=== PATIENT | male | born 1980 | race Two or more races ===

== ENCOUNTER 2017-02-09 20:16 | Emergency (ER) | payer SELFPAY ==
[~2017-02-09] VITALS: Ht 165.1 cm; Wt 108.9 kg
[2017-02-09 20:57] LABS: Basophils # (auto) 0 uL; Basophils % (auto) 0.5 % (0.0-2.0); Eosinophils # (auto) 0.3 uL; Eosinophils % (auto) 3.9 % (0.0-7.0); Hematocrit 45.5 % (41.0-53.0); Hemoglobin 15.7 g/dL (13.5-17.5); Lymphocytes # (auto) 3.2 uL; Lymphocytes % (auto) 40.3 % (10.0-50.0); Mean Corpuscular Hemoglobin 33.3 pg (28.0-32.0); Mean Corpuscular Hgb Conc. 34.6 g/dL (32.0-36.0); Mean Corpuscular Volume 96.3 fL (80.0-100.0); Mean Platelet Volume 8.7 fL (7.4-10.4); Monocytes # (auto) 0.5 uL; Monocytes % (auto) 6.6 % (0.0-12.0); Neutrophils # (auto) 3.9 uL; Neutrophils % (auto) 48.7 % (37.0-80.0); Nucleated Red Blood Cells % 0.1 %; Platelet Count (auto) 251 10^3/uL (140-450)
[2017-02-09 21:04] LABS: Urine Bilirubin Negative (Negative); Urine Blood Negative /uL (Negative); Urine Color Yellow (Yellow); Urine Glucose Normal (Normal); Urine Ketone Negative (Negative); Urine Nitrite Negative (Negative); Urine RBC <1 /hpf (0 - 3); Urine Squamous Epithelial Cell FEW /hpf (<5); Urine Urobilinogen Normal (Negative); Urine pH 5.5 (5.0-8.0)
[2017-02-09 21:12] LABS: INR 0.95 (0.9-1.15); Partial Thromboplastin Time 25.9 sec (22.64-33.71); Prothrombin Time 10.3 sec (9.37-12.3)
[2017-02-09 21:15] LABS: BUN/Creatinine Ratio 12.4; Bilirubin, Total 0.2 mg/dL (0.2-1.0); Calcium 8.9 mg/dL (8.5-10.1); Total Protein 8.4 g/dL (6.4-8.2)
[2017-02-10 02:12] VITALS: BP 119/76
[2017-02-10] MEDS ORDERED: PANTOPRAZOLE 40 MG TAB PO ONE (02:45)
== END 2017-02-10 03:24 | disposition home or self-care (01) ==
LOC: ER 20:16
DX: K29.70 Gastritis, unspecified, without bleeding (principal)
CPT/HCPCS: 36415; 74176; 80053; 81001; 82150; 83690; 85025; 85610; 85730

== ENCOUNTER → 2019-10-18 | Emergency (ER) | payer SELFPAY ==
[~2019-10-18] VITALS: Ht 167.6 cm; Wt 114.3 kg
[~2019-10-18] MED LIST: PENICILLIN G PROC & BENZAT 1200000 UNITS/2 ML SYRG IM ONE
[2019-10-19 01:15] LABS: Basophils # (auto) 0 10 ^3/uL (0-0.2); Basophils % (auto) 0.3 % (0.0-2.0); Eosinophils # (auto) 0.2 10 ^3/uL (0-0.8); Eosinophils % (auto) 3.3 % (0.0-7.0); Hematocrit 43.4 % (41.0-53.0); Hemoglobin 14.9 g/dL (13.5-17.5); Lymphocytes # (auto) 1.8 10 ^3/uL (0.4-5.4); Lymphocytes % (auto) 29.6 % (10.0-50.0); Mean Corpuscular Hgb Conc. 34.4 g/dL (32.0-36.0); Monocytes # (auto) 0.3 10 ^3/uL (0-1.3); Monocytes % (auto) 5.7 % (0.0-12.0); Neutrophils # (auto) 3.7 10 ^3/uL (1.6-8.6); Neutrophils % (auto) 61.1 % (37.0-80.0); Nucleated Red Blood Cells % 0.2 %; Platelet Count (auto) 223 10^3/uL (140-450); Red Blood Cells 4.53 10^6/uL (4.5-5.90); Red Cell Distribution Width 12.8 % (11.8-14.3); White Blood Cell 6.1 10^3/uL (4.4-10.8)
[2019-10-19 01:29] LABS: INR 0.96 (0.9-1.15); Partial Thromboplastin Time 26.4 sec (23.64-32.05)
[2019-10-19 01:32] LABS: Alanine Aminotransferase 74 U/L (16-61); Albumin 3.6 g/dL (3.4-5.0); Anion Gap 5 (5-15); Aspartate Aminotransferase 44 U/L (15-37); Blood Urea Nitrogen 11 mg/dL (7-18); Calcium 7.8 mg/dL (8.5-10.1); Carbon Dioxide 26 mmol/L (21-32); Chloride 109 mmol/L (98-107); GFR African American 109 mL/min; GFR Non-African American 90 mL/min; Glucose 109 mg/dL (74-106); Potassium 3.9 mmol/L (3.5-5.1); Sodium 140 mmol/L (136-145)
[2019-10-19 01:37] LABS: Alkaline Phosphatase 104 U/L (45-117); Bilirubin, Total 0.3 mg/dL (0.2-1.0); Total Protein 7.8 g/dL (6.4-8.2)
[2019-10-19 05:00] VITALS: BP 116/78
== END | disposition home or self-care (01) ==
LOC: ER 23:38
DX: R06.02 Shortness of breath (principal); R05 Cough; Z20.828 Contact with and (suspected) exposure to other viral communicable diseases
CPT/HCPCS: 36415; 80053; 82728; 83605; 83880; 84484; 85025; 85610; 85730; 87040; 87804; 87880; 96372; 99285; U0003

== ENCOUNTER 2019-10-23 21:30 | Inpatient (IN) | payer SELFPAY ==
[~2019-10-23] VITALS: Ht 167.6 cm; Wt 116.0 kg
[2019-10-23] MEDS ORDERED: methylPREDNISolone SOD SUCC 125 MG/2 ML VL IV ONE (22:00)
[2019-10-23 22:18] LABS: Basophils # (auto) 0 10 ^3/uL (0-0.2); Basophils % (auto) 0.4 % (0.0-2.0); Eosinophils # (auto) 0.2 10 ^3/uL (0-0.8); Eosinophils % (auto) 2.7 % (0.0-7.0); Hematocrit 44.6 % (41.0-53.0); Hemoglobin 15.4 g/dL (13.5-17.5); Lymphocytes # (auto) 3.1 10 ^3/uL (0.4-5.4); Lymphocytes % (auto) 35.1 % (10.0-50.0); Mean Corpuscular Hgb Conc. 34.5 g/dL (32.0-36.0); Mean Corpuscular Volume 95.6 fL (80.0-100.0); Monocytes # (auto) 0.5 10 ^3/uL (0-1.3); Monocytes % (auto) 5.7 % (0.0-12.0); Neutrophils % (auto) 56.1 % (37.0-80.0); Nucleated Red Blood Cells % 0.1 %; Platelet Count (auto) 244 10^3/uL (140-450); Red Blood Cells 4.66 10^6/uL (4.5-5.90); Red Cell Distribution Width 12.8 % (11.8-14.3); White Blood Cell 8.9 10^3/uL (4.4-10.8)
[2019-10-23 22:40] LABS: Albumin 4.2 g/dL (3.4-5.0); Potassium 3.6 mmol/L (3.5-5.1)
[2019-10-23 22:44] LABS: BUN/Creatinine Ratio 13.9; Bilirubin, Total 0.5 mg/dL (0.2-1.0); Total Protein 8.4 g/dL (6.4-8.2)
[2019-10-23] MEDS ORDERED: AZITHROMYCIN 250 MG TAB PO ONE (23:45)
[2019-10-23] MEDS ORDERED: SODIUM CHLORIDE 0.9% 1,000 ML IV SCH (23:55)
[2019-10-24] VITALS (7 sets, daily range): BP systolic 104–123; BP diastolic 70–84
[2019-10-24] MEDS ORDERED: IPRATROPIUM BROM 0.5 MG/2.5ML INH SOL NEB PRN
[2019-10-24] MEDS ORDERED: ACETAMINOPHEN 500 MG TAB PO PRN
[2019-10-24] MEDS ORDERED: HYDROcodone-ACET 5/325MG TAB PO PRN
[2019-10-24] MEDS ORDERED: LORazepam 0.5 MG TAB PO PRN
[2019-10-24] MEDS ORDERED: DOCUSATE SOD 100 MG CAP PO PRN
[2019-10-24] MEDS ORDERED: ALBUAER3 IN (03:42)
[2019-10-24] MEDS ORDERED: VITA180C PO (03:42)
[2019-10-24] MEDS ORDERED: ASCO500T11 GT (03:42)
[2019-10-24] MEDS: ALBUTEROL SULF HFA 90MCG INH 200DOSE IN SCH ×4 (06:00→22:40)
[2019-10-24] MEDS: ONDANSETRON HCL 4 MG/2 ML VIAL IV PRN (06:38)
[2019-10-24 07:32] LABS: Calcium 8.7 mg/dL (8.5-10.1); Magnesium 2.4 mg/dL (1.6-2.6); Potassium 4.4 mmol/L (3.5-5.1)
[2019-10-24 07:35] LABS: Bilirubin, Total 0.5 mg/dL (0.2-1.0); Total Protein 8.5 g/dL (6.4-8.2)
[2019-10-24 09:00] LABS: Basophils # (auto) 0 10 ^3/uL (0-0.2); Basophils % (auto) 0.2 % (0.0-2.0); Eosinophils # (auto) 0 10 ^3/uL (0-0.8); Hemoglobin 14.6 g/dL (13.5-17.5); Lymphocytes % (auto) 13.8 % (10.0-50.0); Mean Corpuscular Hemoglobin 32.7 pg (28.0-32.0); Mean Corpuscular Hgb Conc. 33.9 g/dL (32.0-36.0); Mean Corpuscular Volume 96.3 fL (80.0-100.0); Monocytes # (auto) 0.1 10 ^3/uL (0-1.3); Neutrophils # (auto) 6.5 10 ^3/uL (1.6-8.6); Platelet Count (auto) 237 10^3/uL (140-450); Red Blood Cells 4.46 10^6/uL (4.5-5.90); Red Cell Distribution Width 13.1 % (11.8-14.3); White Blood Cell 7.6 10^3/uL (4.4-10.8)
[2019-10-24] MEDS ORDERED: methylPREDNISolone SOD SUCC 125 MG/2 ML VL IV SCH (10:00)
[2019-10-24] MEDS ORDERED: DOXYCYCLINE 100MG/250ML 250 ML IV SCH (10:00)
[2019-10-24] MEDS: ASCORBIC ACID 1,000 MG TAB PO SCH (10:31)
[2019-10-24] MEDS: ZINC SULFATE 220mg CAP or TAB PO SCH (10:32)
[2019-10-24] MEDS: ENOXAPARIN SOD 40 MG/0.4 ML SYRINGE SC SCH (10:33)
[2019-10-24] MEDS: CHOLECALCIFEROL (VITD3) 1,000IU=25mCg TAB PO SCH (12:02)
[2019-10-24] MEDS: DOXYCYCLINE 100 MG TAB/CAP PO SCH ×2 (12:02→21:51)
[2019-10-24] MEDS ORDERED: MORPHINE SULF INJ 2 MG/ML SYRINGE 1ML IV PRN ×2 (13:45)
[2019-10-24] MEDS: methylPREDNISolone SOD SUCC 125 MG/2 ML VL IV SCH (21:51)
[2019-10-25 02:00] VITALS: BP 105/66
[2019-10-25 04:46] VITALS: BP 109/71
[2019-10-25] MEDS: ALBUTEROL SULF HFA 90MCG INH 200DOSE IN SCH ×3 (05:28→22:10)
[2019-10-25 08:27] VITALS: BP 115/76
[2019-10-25] MEDS: ASCORBIC ACID 1,000 MG TAB PO SCH (09:04)
[2019-10-25] MEDS: ZINC SULFATE 220mg CAP or TAB PO SCH (09:04)
[2019-10-25] MEDS: ENOXAPARIN SOD 40 MG/0.4 ML SYRINGE SC SCH (09:04)
[2019-10-25] MEDS: CHOLECALCIFEROL (VITD3) 1,000IU=25mCg TAB PO SCH (09:04)
[2019-10-25] MEDS: DOXYCYCLINE 100 MG TAB/CAP PO SCH ×2 (09:04→22:11)
[2019-10-25] MEDS: methylPREDNISolone SOD SUCC 125 MG/2 ML VL IV SCH (09:29)
[2019-10-25 12:00] VITALS: BP 106/70
[2019-10-25 16:56] VITALS: BP 114/71
[2019-10-25] MEDS: ONDANSETRON HCL 4 MG/2 ML VIAL IV PRN (18:24)
[2019-10-26 04:25] VITALS: BP 95/65
[2019-10-26 06:10] VITALS: BP 110/77
[2019-10-26] MEDS: ALBUTEROL SULF HFA 90MCG INH 200DOSE IN SCH ×2 (06:18→15:20)
[2019-10-26 06:56] VITALS: BP 104/65
[2019-10-26] MEDS: ZINC SULFATE 220mg CAP or TAB PO SCH (09:44)
[2019-10-26] MEDS: ENOXAPARIN SOD 40 MG/0.4 ML SYRINGE SC SCH (09:45)
[2019-10-26] MEDS: CHOLECALCIFEROL (VITD3) 1,000IU=25mCg TAB PO SCH (09:45)
[2019-10-26] MEDS: DOXYCYCLINE 100 MG TAB/CAP PO SCH (09:45)
[2019-10-26] MEDS: ASCORBIC ACID 1,000 MG TAB PO SCH (09:45)
[2019-10-26] MEDS ORDERED: predniSONE 20 MG TAB PO SCH (10:00)
[2019-10-26 13:00] VITALS: BP 90/61
[2019-10-26] MEDS ORDERED: AMOX500T86 PO (13:08)
[2019-10-26] MEDS ORDERED: ZINC220T6 PO (13:08)
[2019-10-26] MEDS ORDERED: HYDR200T36 PO (13:08)
[2019-10-26] MEDS ORDERED: ASCO10003 PO (13:08)
[2019-10-26] MEDS ORDERED: METH4PAK PO (13:08)
[2019-10-26 15:35] VITALS: BP 90/61
== END 2019-10-26 17:10 | disposition home or self-care (01) | DRG 177 ==
LOC: ER 21:32 → TELE 21:33 → TELE-EAST 10-24 02:37
PROVIDERS: ADMIT Hospitalist; ATTEND Internal Medicine
DX: U07.1 COVID-19 (principal); J96.01 Acute respiratory failure with hypoxia; J12.89 Other viral pneumonia; J45.901 Unspecified asthma with (acute) exacerbation; Z79.899 Other long term (current) drug therapy
CPT/HCPCS: 36415; 71045; 80053; 82728; 83735; 85025; 87081; 87804; 87880; 94640; 96361; 96374; G0378; J2405